=== PATIENT | male | born 1950 | race Caucasian/White ===

== ENCOUNTER → 2021-11-02 | Outpatient (CLI) | payer MEDICARE, OTHER ==
[2021-11-02 12:39] LABS: Appearance,Urine Clear (Clear); Bilirubin,Urine Negative (Negative); Blood,Urine Negative (Negative); Color,Urine Yellow; Glucose,Urine (UA) Negative (Negative); Ketones,Urine Negative (Negative); Leukocyte Esterase,Urine Trace (Negative); Mucus,Urine Few /hpf; Nitrite,Urine Negative (Negative); PH, Urine 5.5 (5.0-8.0); Protein,Urine Trace (Negative); RBC,Urine <1 /hpf (0-5); Specific Gravity,Urine 1.022 (1.001-1.035); Urobilinogen,Urine <2.0 mg/dL (<2.0); WBC,Urine 3 /hpf (0-5)
[2021-11-02 18:14] LABS: African American GFR (CKD) 106.9 (60.0-200.0); Anion Gap 11.6 mmol/L (10.00-18.00); BUN/Creat Ratio 16.49 Ratio (12.00-20.00); Blood Urea Nitrogen 12.6 mg/dL (9.0-27.0); Calcium 9.2 mg/dL (8.7-10.3); Carbon Dioxide 21.6 mmol/L (20.0-27.5); Non-African American GFR(CKD) 92.2 (60.0-200.0); Potassium 4.8 mmol/L (3.5-5.5)
[2021-11-02 18:18] LABS: Basophils # (A) 0.07 X 10*3/uL (0.00-0.10); Basophils % (A) 0.9 %; Eosinophils % (A) 3.6 %; HCT 49.1 % (39.6-50.0); HGB 16.2 g/dL (13.0-17.0); Immature Grans, Automated 0.2 %; Lymphocytes # (A) 2.35 X 10*3/uL (0.90-5.00); Lymphocytes % (A) 28.6 %; MCH 29.2 pg (27.0-32.0); MCV 88.5 fL (80.0-97.0); Mean Platelet Volume 10.1 fL (9.5-12.2); Monocytes # (A) 0.71 X 10*3/uL (0.20-1.00); Monocytes % (A) 8.6 %; NRBC Per 100 WBC 0 /100 WBCS (0.0-0.0); Neutrophils # (A) 4.78 X 10*3/uL (1.80-7.70); Neutrophils % (A) 58.1 %; Platelet Count 273 X 10*3/uL (140-440); RBC 5.55 X 10*6/uL (4.40-5.60); RDW 14.5 % (11.5-14.5); WBC 8.23 X 10*3/uL (4.50-10.00)
== END | disposition home or self-care (01) ==
LOC: LABPAT 11:30
PROVIDERS: ATTEND Urology
DX: Z01.812 Encounter for preprocedural laboratory examination (principal); N40.1 Benign prostatic hyperplasia with lower urinary tract symptoms; N39.0 Urinary tract infection, site not specified; R53.83 Other fatigue
CPT/HCPCS: 36415; 80048; 81001; 85025; 87086; 93005

== ENCOUNTER 2021-11-08 10:03 | Inpatient (IN) | payer MEDICARE, OTHER ==
--- NOTE | 2021-11-05 09:00 | P.HPIHPCON ---
History of Present Illness H&P Date: 11/05/21 This is an 71-year-old male with a history of BPH. He has history of 86 g prostate. Discussed given the size of his prostate the recommended approach is either a HoLEP or Robotic simple prostatecomy. discussed the risk and benefit of each procedure in detail. He agreed to proceed with a robotic simple prostatectomy. Discussed with him the risk of surgery which includes but not limited to bleeding, infection, injury to nearby organs which includes but not limited to bowel, ureter, rectum, or blood vessels.. Discussed also with him risk from anesthesia which includes but not limited to heart attack, stroke, blood clots. Discussed with him also the risk of persistent retention even with simple prostatectomy. Discussed the risk of erectile dysfunction and urinary incontinence. He understood all the risk and agreed to proceed Consent for Procedure: I have explained the operation/procedure to the patient, including the risks, benefits, side effects, alternative therapies (including not receiving the proposed treatment or service), the likelihood of the patient achieving his/her goals, and potential recuperation problems for the procedure/sedation/analgesia, as well as any blood products, if indicated. I also explained to the patient the risks, benefits and side effects of the alternatives, as well as the risks related to not receiving the proposed procedure, care, treatment, or services. Surgical - Exam - General no distress, no pain - Eyes normal ocular movement - ENT normal nares, normal mucosa - Respiratory normal expansion, normal respiratory effort - Abdomen Abdomen: soft, non tender - Psychiatric oriented to time, oriented to person, oriented to place Assessment and Plan Assessment: OR for robotic simple prostatectomy
[2021-11-05 16:09] VITALS: BMI 34.8
[~2021-11-08 10:03] MED LIST: DEXAMETHASONE SOD PHOSPHATE 4 MG/ML 1 ML VIAL IV ONE; HEPARIN SODIUM,PORCINE/PF 5,000 UNIT/0.5 ML SYRINGE SQ PRN; HYDROmorphone 0.5 MG/0.5 ML SYRINGE IVP PRN; MIDAZOLAM 2 MG/2 ML VIAL IV PRN; ONDANSETRON 4 MG/2 ML VIAL IVP ONE
[2021-11-08 10:46] VITALS: TEMP 97.8
[2021-11-08] MEDS: LIDOCAINE 1% (10MG/ML) FOR IV START INTRADERMA PRN ×2 (10:50→11:01)
[2021-11-08] MEDS: LACTATED RINGERS 1,000 ML IV SCH ×3 (10:50→12:12)
[2021-11-08 12:44] VITALS: BP 141/84; PULSE 66; RESP 18
== END 2021-11-08 12:45 | disposition home or self-care (01) | DRG 725 ==
LOC: 2ORMAIN 10:03
PROVIDERS: ADMIT Urology; ATTEND Urology
DX: N40.1 Benign prostatic hyperplasia with lower urinary tract symptoms (principal); U07.1 COVID-19; Z53.8 Procedure and treatment not carried out for other reasons; H40.9 Unspecified glaucoma; Z79.899 Other long term (current) drug therapy; Z91.030 Bee allergy status; Z88.8 Allergy status to other drugs, medicaments and biological substances
CPT/HCPCS: 86850; 86900; 86901; 87635

== ENCOUNTER → 2022-07-02 | Outpatient (CLI) | payer MEDICARE, OTHER ==
[2022-07-03 03:00] LABS: Basophils # (A) 0.07 X 10*3/uL (0.00-0.10); Basophils % (A) 0.8 %; Eosinophils # (A) 0.52 X 10*3/uL (0.04-0.35); Eosinophils % (A) 6.1 %; HCT 49.9 % (39.6-50.0); HGB 16.2 g/dL (13.0-17.0); Immature Grans, Automated 0.2 %; Lymphocytes # (A) 2.67 X 10*3/uL (0.90-5.00); Lymphocytes % (A) 31.1 %; MCH 28.5 pg (27.0-32.0); MCHC 32.5 g/dL (32.0-37.0); MCV 87.9 fL (80.0-97.0); Mean Platelet Volume 10.6 fL (9.5-12.2); Monocytes # (A) 0.81 X 10*3/uL (0.20-1.00); Monocytes % (A) 9.4 %; NRBC Per 100 WBC 0 /100 WBCS (0.0-0.0); Neutrophils % (A) 52.4 %; Platelet Count 279 X 10*3/uL (140-440); RBC 5.68 X 10*6/uL (4.40-5.60); RDW 14.2 % (11.5-14.5); WBC 8.59 X 10*3/uL (4.50-10.00)
[2022-07-03 07:42] LABS: Appearance,Urine Turbid (Clear); Bacteria,Urine None Seen /HPF (None Seen); Bilirubin,Urine Negative (Negative); Blood,Urine Negative (Negative); Calcium Oxalate Crystals,Urine Present /LPF (None Seen); Color,Urine Dark Yellow (Yellow); Ketones,Urine Trace mg/dL (Negative); Nitrite,Urine Negative (Negative); Specific Gravity,Urine 1.025 (1.001-1.030); Urobilinogen,Urine 0.2 (0.2,1.0)
[2022-07-03 08:16] LABS: African American GFR (CKD) 104.2 (60.0-200.0); BUN/Creat Ratio 15.13 Ratio (12.00-20.00); Blood Urea Nitrogen 12.1 mg/dL (9.0-27.0); Non-African American GFR(CKD) 89.9 (60.0-200.0); Potassium 4.2 mmol/L (3.5-5.5)
== END | disposition home or self-care (01) ==
LOC: LABPAT 14:32
PROVIDERS: ATTEND Urology
DX: Z01.812 Encounter for preprocedural laboratory examination (principal); N40.1 Benign prostatic hyperplasia with lower urinary tract symptoms; N39.0 Urinary tract infection, site not specified; R53.83 Other fatigue
CPT/HCPCS: 80048; 81001; 85025; 87086; 93005

== ENCOUNTER 2022-07-11 07:04 | Inpatient (IN) | payer MEDICARE, OTHER ==
[2022-07-09 16:36] VITALS: BMI 36.6
--- NOTE | 2022-07-10 10:20 | P.HPIHPCON ---
History of Present Illness H&P Date: 07/10/22 Chief Complaint: BPH This is a 72-year-old male with history of 84 g prostate, having significant urinary symptoms despite medical therapy. Discussed with him given the size of his prostate the option of a robotic simple prostatectomy versus a HoLEP. Discussed with him the risk and the benefit of each approach. He agreed to proceed with a robotic simple prostatectomy. Discussed the risk which includes but not limited to bleeding, infection, urinary incontinence, urethral strictures, erectile dysfunction, retrograde ejaculation. Discussed also risk from anesthesia. He understood all the risk and agreed to proceed with robotic simple prostatectomy Consent for Procedure: I have explained the operation/procedure to the patient, including the risks, benefits, side effects, alternative therapies (including not receiving the proposed treatment or service), the likelihood of the patient achieving his/her goals, and potential recuperation problems for the procedure/sedation/analgesia, as well as any blood products, if indicated. I also explained to the patient the risks, benefits and side effects of the alternatives, as well as the risks related to not receiving the proposed procedure, care, treatment, or services. Past Medical History Past Medical History: Eye Disorder, GERD/Reflux, Hearing Disorder / Deafness, Prostate Disorder Additional Past Medical History / Comment(s): Glaucoma bilat eyes. Hx nephritis as child. Enlarged prostate., CADDO History of Any Multi-Drug Resistant Organisms: None Reported Past Surgical History: Joint Replacement, Orthopedic Surgery, Tonsillectomy Additional Past Surgical History / Comment(s): Total hips bilat. ORIF Rt ankle. Vasectomy, epididymectomy., COLONOSCOPY, BILAT CATARACTS REMOVED WITH LENS IMPLANTS, RT RETINAL SX, Past Anesthesia/Blood Transfusion Reactions: No Reported Reaction Smoking Status: Former smoker - Past Family History Mother Sister(s) Family Medical History: Cancer Additional Family Medical History / Comment(s): mother - breast cancer; sister - breast cancer Father Family Medical History: Cancer Additional Family Medical History / Comment(s): colon cancer Medications and Allergies Home Medications Medication Instructions Recorded Confirmed Type Multivitamins, Thera [Multivitamin 1 tab PO DAILY 11/05/21 07/09/22 History (formulary)] RX: Dorzolamide-Timol 2.23%/0.68% 1 drop BOTH EYES BID 11/05/21 07/09/22 History [Cosopt] Allergies Allergy/AdvReac Type Severity Reaction Status Date / Time bee venom protein (honey bee) Allergy Swelling Verified 07/09/22 16:27 epoxy resin Allergy Swelling Verified 07/09/22 16:27 Surgical - Exam - General no distress, no pain - Respiratory normal expansion, normal respiratory effort - Abdomen Abdomen: soft, non tender Assessment and Plan Assessment: OR for a robotic simple prostatectomy
[~2022-07-11 07:04] MED LIST changes: -HYDROmorphone 0.5 MG/0.5 ML SYRINGE IVP PRN; +LIDOCAINE 1% (10MG/ML) FOR IV START INTRADERMA PRN; +ceFAZolin 3 GM in SODIUM CHLORIDE 0.9% 100 ML IVPB PRN
[2022-07-11] MEDS: LACTATED RINGERS 1,000 ML IV SCH (08:23)
[2022-07-11] MEDS ORDERED: LACTATED RINGERS 1,000 ML IV ONE (09:00)
[2022-07-11] MEDS ORDERED: fentaNYL (PF) 50 MCG/ML 2 ML AMP IV ONE ×2 (09:09→09:15)
[2022-07-11] MEDS ORDERED: MIDAZOLAM 2 MG/2 ML VIAL IV ONE ×2 (09:09→09:15)
[2022-07-11] MEDS ORDERED: ceFAZolin 1,000 MG VIAL ONE (09:15)
[2022-07-11] MEDS ORDERED: GLYCOPYRROLATE 0.2 MG/ML 2 ML VIAL ONE (09:15)
[2022-07-11] MEDS ORDERED: ROCURONIUM 10 MG/ML (5 ML VIAL) IV ONE (09:15)
[2022-07-11] MEDS ORDERED: NEOSTIGMINE 1 MG/ML 10 ML VIAL ONE (09:15)
[2022-07-11] MEDS ORDERED: LIDOCAINE 2% INJ 20 MG/ML (2 ML VIAL) ONE (09:15)
[2022-07-11] MEDS ORDERED: diphenhydrAMINE 50 MG/ML 1 ML VIAL ONE (09:15)
[2022-07-11] MEDS ORDERED: fentaNYL (PF) 50 MCG/ML 2 ML AMP ONE (09:15)
[2022-07-11] MEDS ORDERED: ONDANSETRON 4 MG/2 ML VIAL ONE (09:15)
[2022-07-11] MEDS ORDERED: SODIUM CHLORIDE 0.9% 100 ML BAG ONE (09:15)
[2022-07-11] MEDS ORDERED: HYDROmorphone (PF) 1 MG/ML ONE (09:15)
[2022-07-11] MEDS ORDERED: SUCCINYLCHOLINE CHLORIDE 200 MG/10 ML VIAL IV ONE (09:15)
[2022-07-11] MEDS ORDERED: SODIUM CHLORIDE 0.9% (PF) 10 ML VIAL ONE (09:15)
[2022-07-11] MEDS ORDERED: PROPOFOL 10 MG/ML 20 ML VIAL IV ONE (09:15)
[2022-07-11] MEDS ORDERED: ROPIVACAINE 5 MG/ML 30 ML VIAL ONE (09:15)
[2022-07-11] MEDS ORDERED: BUPIVACAINE (PF) 0.25% 30 ML VIAL SQ ONE ×2 (09:56)
[2022-07-11] MEDS ORDERED: HYDROcodone/APAP 5-325MG 1 EACH TAB PO PRN (12:54)
--- NOTE | 2022-07-11 12:57 | P.OP ---
Date of Procedure: 07/11/22 Preoperative Diagnosis: BPH Postoperative Diagnosis: same Procedure(s) Performed: robotic simple prostatectomy Implants: none Anesthesia: ISACA Surgeon: Josh Roth Estimated Blood Loss (ml): 200 Pathology: other (prostate adenoma) Condition: stable Disposition: PACU Indications for Procedure: This is a 72-year-old male with history of 84 g prostate, having significant urinary symptoms despite medical therapy. Discussed with him given the size of his prostate the option of a robotic simple prostatectomy versus a HoLEP. Discussed with him the risk and the benefit of each approach. He agreed to proceed with a robotic simple prostatectomy. Discussed the risk which includes but not limited to bleeding, infection, urinary incontinence, urethral strictures, erectile dysfunction, retrograde ejaculation. Discussed also risk from anesthesia. He understood all the risk and agreed to proceed with robotic simple prostatectomy Description of Procedure: After preoperative antibiotics were started, the patient was taken to the operating room. Anesthesia was induced and the patient was placed in a supine position with adequate padding of the pressure points, shoulders, back, legs and arms. He was then prepped and draped in the standard fashion. A critical pause was performed using two patient identifiers. A 16F langley catheter was placed to gravity drainage. A pneumoperitoneum was obtained using a Veress needle, after pneumoperitoneum was obtained a 8 mm camera port was placed. Under direct vision a 8mm robotic ports was placed lateral to each rectus slightly below the camera port. The left iliac fossa 8mm port was placed. The right miner assistant right iliac fossa 12mm port and right paramedian 5mm portwere placed. After the patient was placed in the trendelenberg position, the robot was then docked to the 8mm robotic ports and then each robotic arm and tower was checked in relation to the patient's legs and hands to avoid inadvertent compression. The peritoneal cavity was inspected. Adhesions were taken down along the left lower quadrant An inverted U-shaped incision began laterally to the left medial umbilical ligament and extended high across the midline to the right umbilical ligament. The limbs of the "U" extended to the level of the vasa on both sides. We next developed the preperitoneal space and the space of Retzius. Cautery was used to dissected the bladder away from the prostate, the incision was made in close proximity to the prostate, and incision was extended laterally and at this point the plane between the adenoma and the surgical capsule is identified. Both ureteral orifices were identified and neither was injured during the dissection . The adenoma was dissected off of the capsule by combination of blunt dissection and minimum cautery. dissection was initially started along the anterior surface and posterior surface of adenoma, and this was carried laterally. The dissection was carried to the apex, at this point the urethral-prostatic junction was visualized and the prostate was transected at the junction. Prostate adenoma was placed in an endocatch bag . A 9and 6 inch 3-0 V-Lock suture was used to anastomose the urethra and bladder, starting at the 6:00 posterior position. Mucosa was secured in every stitch, to ensure a mucosa to mucosa anastomosis. The stitch was regularly cinched and the anastomosis tightened. . The 20 Fr Langley catheter was advanced, the bladder filled, and the anastomosis was tested. Anastomsis was watertight at 150 mL. balloon was inflated to 10 mL The robot was undocked. specimen was extracted from the supraumbilical incision. The periumbilical fascia was closed with 1-0-PDS suture in figure of 8 fashion. All ports were closed with a subcuticular 4-0 monocryl and Dermabond. Sponge, instrument, and needle counts were correct at the end of the case x2. The patient tolerated the surgery well and without complication. He awoke without difficulty and was taken to the recovery room in stable condition
[2022-07-11] MEDS: HYDROmorphone 0.5 MG/0.5 ML SYRINGE IVP PRN ×2 (13:19→14:08)
--- NOTE | 2022-07-11 14:19 | P.ANPRN ---
Procedure Note - Anesthesia - Nerve Block Performed Bilateral Erector Spinae Time Out Performed: Yes (:) Date of Procedure: 07/11/22 Procedure Start Time: Procedure Stop Time: Location of Patient: PreOp Indication: Acute Post-Operative Pain, Requested by Surgeon (DR Roth) Sedation Type: Sedate with meaningful contact maintained Preparation: Sterile Prep Position: Prone Catheter: None Needle Types: Pajunk Needle Gauge: 21 Ultrasound used to visualize needle placement: Yes Ultrasound used to observe medication spread: Yes Injectate: 0.5% Ropivacaine (see comment for volume) (15cc +10cc PF Normal saline each side) Blood Aspirated: No Pain Paresthesia on Injection Noted: No Resistance on Injection: Normal Image Stored and Saved: Yes Events: Uneventful and Well Tolerated
[2022-07-11] MEDS: D5-0.45% NACL WITH KCL 20MEQ/L 1,000 ML IV SCH ×2 (16:16→21:37)
[2022-07-11] MEDS: KETOROLAC 15 MG/ML 1 ML VIAL IVP SCH ×2 (17:01→23:55)
[2022-07-11] MEDS: HEPARIN SODIUM,PORCINE/PF 5,000 UNIT/0.5 ML SYRINGE SQ SCH ×2 (17:02→23:55)
[2022-07-11 20:25] VITALS: RESP 16
[2022-07-11] MEDS: DORZOLAMIDE-TIMOLOL 2.23%/0.68 10ML BTL BOTH EYES SCH (21:36)
[2022-07-12] MEDS: LACTATED RINGERS 1,000 ML IV SCH (03:49)
[2022-07-12] MEDS: KETOROLAC 15 MG/ML 1 ML VIAL IVP SCH (06:04)
[2022-07-12 07:47] VITALS: BP 126/80; PULSE 67; TEMP 96.8
[2022-07-12] MEDS: HEPARIN SODIUM,PORCINE/PF 5,000 UNIT/0.5 ML SYRINGE SQ SCH (08:24)
[2022-07-12] MEDS: DORZOLAMIDE-TIMOLOL 2.23%/0.68 10ML BTL BOTH EYES SCH (08:24)
[2022-07-12] MEDS: D5-0.45% NACL WITH KCL 20MEQ/L 1,000 ML IV SCH (08:24)
--- NOTE | 2022-07-12 12:50 | P.DS ---
Providers Date of admission: 07/11/22 07:04 Expected date of discharge: 07/12/22 Attending physician: Josh Roth MD Primary care physician: Gabbi Morejon - Discharge Diagnosis(es) (1) BPH with urinary obstruction Status: Acute Hospital Course: The patient is a 72-year-old male with a pmh significant for BPH. He had significant urinary symptoms despite medical therapy. On 07/11/22 he was taken to the OR and had a robotic simple prostatectomy with Dr. Roth. No acute events over night. He reports that his pain is well controlled. Abdominal laparoscopic sites CDI. Vitals stable and he is afebrile. Hcerry catheter draining clear yellow urine. He ate breakfast and denies any nausea or vomiting. He has been out of bed and ambulating in his room and denies any shortness of breath. The patient will be discharged with a Cherry catheter in place. Requested that the RN change his drainage bag to a leg bag before discharge. He was instructed to start taking his Cipro 3 days prior to his follow up appointment in one week. His catheter will be removed in the office at that time. His was present at the bedside for all instructions. Prescriptions for Cipro, Nocro, and Toradol sent to pharmacy. Impression and plan of care have been directed as dictated by the signing physician. Chelsi Hamlin nurse practitioner acting as scribe for signing physician. Chelsi Hamlin 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 Patient Condition at Discharge: Good Plan - Discharge Summary Discharge Rx Participant: Yes New Discharge Prescriptions: New Sennosides-Docusate Sodium [Senokot-S] 1 tab PO DAILY #7 tablet Ciprofloxacin HCl [Cipro] 500 mg PO BID 1 Days #6 tab HYDROcodone/APAP 5-325MG [[place] 5-325] 1 tab PO Q6HR PRN #6 tab PRN Reason: Pain Ketorolac [Toradol] 10 mg PO Q6HR PRN #15 tab PRN Reason: Pain No Action Multivitamins, Thera [Multivitamin (formulary)] 1 tab PO DAILY Dorzolamide-Timol 2.23%/0.68% [Cosopt] 1 drop BOTH EYES BID Discharge Medication List Dorzolamide-Timol 2.23%/0.68% [Cosopt] 1 drop BOTH EYES BID 11/05/21 [History] Multivitamins, Thera [Multivitamin (formulary)] 1 tab PO DAILY 11/05/21 [History] Ciprofloxacin HCl [Cipro] 500 mg PO BID 1 Days #6 tab 07/12/22 [Rx] HYDROcodone/APAP 5-325MG [[place] 5-325] 1 tab PO Q6HR PRN #6 tab 07/12/22 [Rx] Ketorolac [Toradol] 10 mg PO Q6HR PRN #15 tab 07/12/22 [Rx] Sennosides-Docusate Sodium [Senokot-S] 1 tab PO DAILY #7 tablet 07/12/22 [Rx] Follow up Appointment(s)/Referral(s): Josh Roth MD [STAFF PHYSICIAN] - 07/22/22 9:40 am [facility], [NON-STAFF] - As Needed Activity/Diet/Wound Care/Special Instructions: Cherry catheter will be taken out in follow up appointment Please start antibiotic - Cipro 3 days before follow up appointment No heavy lifting, straining, or strenuous activity for 4 weeks Discharge Disposition: HOME SELF-CARE
== END 2022-07-12 12:05 | disposition home health service (06) | DRG 717 ==
LOC: 2ORMAIN 07:04 → 4SSUR 14:38
PROVIDERS: ADMIT Urology; ATTEND Urology
PROC: 8E0W4CZ Robotic Assisted Procedure of Trunk Region, Percutaneous Endoscopic Approach (ICD-10-PCS; principal; 2022-07-11 09:00)
PROC: 0VB04ZZ Excision of Prostate, Percutaneous Endoscopic Approach (ICD-10-PCS; principal; 2022-07-11 09:00)
DX: N40.1 Benign prostatic hyperplasia with lower urinary tract symptoms (principal); N13.8 Other obstructive and reflux uropathy; K21.9 Gastro-esophageal reflux disease without esophagitis; H91.90 Unspecified hearing loss, unspecified ear; H40.9 Unspecified glaucoma; Z79.899 Other long term (current) drug therapy; Z87.891 Personal history of nicotine dependence; Z96.643 Presence of artificial hip joint, bilateral; Z91.030 Bee allergy status; Z91.048 Other nonmedicinal substance allergy status
CPT/HCPCS: 64999; 86850; 86900; 86901; 88307

== ENCOUNTER 2022-07-13 15:12 | Inpatient (IN) | payer MEDICARE, OTHER ==
[2022-07-13] MEDS ORDERED: SODIUM CHLORIDE 0.9% 500 ML 500 ML IV STA (15:39)
--- NOTE | 2022-07-13 15:42 | ED ---
General Adult HPI - General Chief complaint: Recheck/Abnormal Lab/Rx Stated complaint: post op complication Time Seen by Provider: 07/13/22 15:18 Source: patient Mode of arrival: EMS Limitations: no limitations - History of Present Illness Initial comments: Dictation was produced using [employer] dictation software. please excuse any grammatical, word or spelling errors. Chief Complaint: 72-year-old male presents to the emergency department for abdominal pain, nausea vomiting and constipation History of Present Illness: 72-year-old male on he had laparoscopic prostate surgery. Patient states since then he has not had a bowel movement. Since late yesterday been having nausea vomiting and abdominal pain. He has not tried to take any medications improve her symptoms radiate is brought in by EMS. Patient has any fever. States that his appetite is poor. States that his emesis is nonbloody. The ROS documented in this emergency department record has been reviewed and confirmed by me. Those systems with pertinent positive or negative responses have been documented in the HPI. All other systems are other negative and/or noncontributory. PHYSICAL EXAM: General Impression: Alert and oriented x3, not in acute distress HEENT: Normocephalic atraumatic, extra-ocular movements intact, pupils equal and reactive to light bilaterally, mucous membranes moist. Cardiovascular: Heart regular rate and rhythm Chest: Able to complete full sentences, no retractions, no tachypnea Abdomen: Mildly distended, mildly tympanitic Musculoskeletal: Pulses present and equal in all extremities, no peripheral edema Motor: no focal deficits noted Neurological: CN II-XII grossly intact, no focal motor or sensory deficits noted Skin: Intact with no visualized rashes Psych: Normal affect and mood ED course: 72-year-old male presents emergency department for abdominal pain, nausea vomiting since surgery. Vital signs upon arrival are within acceptable limits. Evaluation obtained leukocytosis 16.6. Metabolic panel is unremarkable. Abdominal labs negative. Initial abdominal x-rays unremarkable. Concerning patient has abdominal pain leukocytosis and significant GI symptoms computed tomography scan was ordered showing high-grade mechanical bowel obstruction secondary to incarcerated umbilical hernia. Case is discussed with Dr. Brasher who was playing on taking patient to the operating room urgently. - Related Data Home Medications Medication Instructions Recorded Confirmed Dorzolamide-Timol 2.23%/0.68% 1 drop BOTH EYES BID 11/05/21 07/13/22 [Cosopt] Multivitamins, Thera [Multivitamin 1 tab PO DAILY 11/05/21 07/13/22 (formulary)] Ciprofloxacin HCl [Cipro] 500 mg PO DIRECTED 07/13/22 07/13/22 Previous Rx's Medication Instructions Recorded HYDROcodone/APAP 5-325MG [[place] 1 tab PO Q6HR PRN #6 tab 07/12/22 5-325] Ketorolac [Toradol] 10 mg PO Q6HR PRN #15 tab 07/12/22 Sennosides-Docusate Sodium 1 tab PO DAILY #7 tablet 07/12/22 [Senokot-S] Allergies Allergy/AdvReac Type Severity Reaction Status Date / Time bee venom protein (honey bee) Allergy Swelling Verified 07/09/22 16:27 epoxy resin Allergy Swelling Verified 07/09/22 16:27 Review of Systems ROS Statement: Those systems with pertinent positive or pertinent negative responses have been documented in the HPI. ROS Other: All systems not noted in ROS Statement are negative. Past Medical History Past Medical History: Eye Disorder, GERD/Reflux, Hearing Disorder / Deafness, Prostate Disorder Additional Past Medical History / Comment(s): Glaucoma bilat eyes. Hx nephritis as child. Enlarged prostate. History of Any Multi-Drug Resistant Organisms: None Reported Past Surgical History: Joint Replacement, Orthopedic Surgery, Tonsillectomy Additional Past Surgical History / Comment(s): Total hips bilat. ORIF Rt ankle. Vasectomy, epididymectomy. prostate surgery Past Anesthesia/Blood Transfusion Reactions: No Reported Reaction Past Psychological History: No Psychological Hx Reported Smoking Status: Former smoker Past Alcohol Use History: None Reported Past Drug Use History: None Reported - Past Family History Mother Sister(s) Family Medical History: Cancer Additional Family Medical History / Comment(s): mother - breast cancer; sister - breast cancer Father Family Medical History: Cancer Additional Family Medical History / Comment(s): colon cancer General Exam Limitations: no limitations Course Vital Signs 07/13/22 15:15 Temperature 98.9 F Pulse Rate 94 Respiratory 18 Rate Blood Pressure 119/97 O2 Sat by Pulse 95 Oximetry Medical Decision Making - Lab Data Result diagrams: 07/13/22 15:58 07/13/22 15:58 Lab Results 07/13/22 07/13/22 07/13/22 Range/Units 15:58 15:58 15:58 WBC 16.6 H (3.8-10.6) k/uL RBC 5.76 (4.30-5.90) m/uL Hgb 16.6 (13.0-17.5) gm/dL Hct 50.1 (39.0-53.0) % MCV 87.0 (80.0-100.0) fL MCH 28.9 (25.0-35.0) pg MCHC 33.2 (31.0-37.0) g/dL RDW 13.9 (11.5-15.5) % Plt Count 281 (150-450) k/uL MPV 8.7 Neutrophils % (Manual) 75 % Band Neuts % (Manual) 8 % Lymphocytes % (Manual) 7 % Monocytes % (Manual) 8 % Eosinophils % (Manual) 2 % Neutrophils # (Manual) 13.70 H (1.3-7.7) k/uL Lymphocytes # (Manual) 1.16 (1.0-4.8) k/uL Monocytes # (Manual) 1.33 H (0-1.0) k/uL Eosinophils # (Manual) 0.33 (0-0.7) k/uL Nucleated RBCs 0 (0-0) /100 WBC Manual Slide Review Performed Sodium 138 (137-145) mmol/L Potassium 4.9 (3.5-5.1) mmol/L Chloride 101 (98-107) mmol/L Carbon Dioxide 23 (22-30) mmol/L Anion Gap 14 mmol/L BUN 20 (9-20) mg/dL Creatinine 0.71 (0.66-1.25) mg/dL Est GFR (CKD-EPI)AfAm >90 (>60 ml/min/1.73 sqM) Est GFR (CKD-EPI)NonAf >90 (>60 ml/min/1.73 sqM) Glucose 137 H (74-99) mg/dL Plasma Lactic Acid Hrerera 1.6 (0.7-2.0) mmol/L Calcium 8.5 (8.4-10.2) mg/dL Total Bilirubin 1.1 (0.2-1.3) mg/dL AST 25 (17-59) U/L ALT 22 (4-49) U/L Alkaline Phosphatase 101 (38-126) U/L Total Protein 7.4 (6.3-8.2) g/dL Albumin 4.3 (3.5-5.0) g/dL Disposition Clinical Impression: SBO (small bowel obstruction) Disposition: ADMITTED IP TO THIS [facility] Condition: Serious Decision Time: 18:27
--- NOTE | 2022-07-13 16:19 | XR ---
EXAMINATION TYPE: XR abdomen 1V DATE OF EXAM: 07/13/2022 COMPARISON: NONE HISTORY: Abdominal pain TECHNIQUE: 2 views FINDINGS: 2 views upright were obtained and show no sign of intestinal obstruction or pneumoperitoneu m. Fecal pattern is normal. There is mild lumbar levoscoliosis. There is bilateral hip prosthesis. Sa croiliac joints are intact. IMPRESSION: Nonacute abdomen.
[2022-07-13 16:27] LABS: ALT 22 U/L (4-49); AST 25 U/L (17-59); African American GFR (CKD) >90 (>60 ml/min/1.73 sqM); Albumin 4.3 g/dL (3.5-5.0); Alkaline Phosphatase 101 U/L (38-126); Anion Gap 14 mmol/L; Blood Urea Nitrogen 20 mg/dL (9-20); Calcium 8.5 mg/dL (8.4-10.2); Carbon Dioxide 23 mmol/L (22-30); Chloride 101 mmol/L (98-107); Glucose 137 mg/dL (74-99); Non-African American GFR(CKD) >90 (>60 ml/min/1.73 sqM); Potassium 4.9 mmol/L (3.5-5.1); Sodium 138 mmol/L (137-145); Total Bilirubin 1.1 mg/dL (0.2-1.3); Total Protein 7.4 g/dL (6.3-8.2)
[2022-07-13 16:29] LABS: HCT 50.1 % (39.0-53.0); HGB 16.6 gm/dL (13.0-17.5); MCH 28.9 pg (25.0-35.0); MCHC 33.2 g/dL (31.0-37.0); Mean Platelet Volume 8.7; Platelet Count 281 k/uL (150-450); RBC 5.76 m/uL (4.30-5.90); RDW 13.9 % (11.5-15.5); WBC 16.6 k/uL (3.8-10.6)
[2022-07-13 16:49] LABS: Band Neutrophils % 8 %; Eosinophils # (M) 0.33 k/uL (0-0.7); Lymphocytes # (M) 1.16 k/uL (1.0-4.8); Monocytes # (M) 1.33 k/uL (0-1.0); Neutrophils % (M) 75 %; Nucleated Red Blood Cells 0 /100 WBC (0-0); Total Cells Counted 100
--- NOTE | 2022-07-13 17:11 | CT ---
EXAMINATION TYPE: CT abdomen pelvis w con DATE OF EXAM: 07/13/2022 COMPARISON: HISTORY: Pt had sx on for enlarged prostate. Now pt C/O costipation and has blood in his cat heter bag. [place] and vomiting CT DLP: 2555.2 mGycm Automated exposure control for dose reduction was used. CONTRAST: Performed with IV Contrast, patient injected with 100cc mL of Isovue 300. Images obtained from the diaphragm to the floor the pelvis with the IV contrast. There is some mild atelectasis at the lung bases. Heart size is normal. No pericardial effusion. Ther e is small hiatal hernia. Liver spleen stomach appear intact. No pancreatic mass. The bile ducts are not dilated. There is no adrenal mass. Kidneys show satisfactory contrast opacification. No hydronephrosis. Ureter s are not dilated. There is Cherry catheter in the urinary bladder. There is metal artifact from bilat eral hip prosthesis. No evidence of a pelvic mass. There are multiple sigmoid diverticula. No diverti culitis. There are numerous fluid-filled distended small bowel loops in the mid abdomen. Terminal ile um is not dilated. There is a jose miguel-umbilical hernia with incarcerated loop of small bowel which is a transition point. There is some minimal fat stranding at the subcutaneous tissues around the umbilicu s. Small bowel is dilated up to 4.9 cm. The lumbar vertebra appear intact. No compression fracture. There is vacuum disc at L4-5. There is sp urring of the endplates. IMPRESSION: Incarcerated periumbilical hernia containing small bowel with the high-grade mechanical small bowel o bstruction. Colonic diverticulosis without diverticulitis.
[2022-07-13] MEDS ORDERED: SODIUM CHLORIDE 0.9% 1,000 ML IV STA (17:38)
[2022-07-13] MEDS ORDERED: NALOXONE 0.4 MG/ML 1 ML VIAL IV PRN (17:44)
[2022-07-13] MEDS: PIPERACILLIN-TAZOBACTAM 3.375 GM in SODIUM CHLORIDE 0.9% 100 ML IVPB SCH (18:17)
--- NOTE | 2022-07-13 18:22 | P.GSHP ---
History of Present Illness H&P Date: 07/13/22 Chief Complaint: Small bowel obstruction Patient is a 72-year-old man who underwent robotic hysterectomy earlier in the week. He was doing well yesterday. This morning when he woke up he was developing nausea and progressive abdominal pain. He came into the ER and was worked up and found to have a incarcerated hernia. He's never had a known hernia in the past. He has a lot of heartburn and nausea but has not vomited. - Review of Systems All systems: negative Past Medical History Past Medical History: Eye Disorder, GERD/Reflux, Hearing Disorder / Deafness, Prostate Disorder Additional Past Medical History / Comment(s): Glaucoma bilat eyes. Hx nephritis as child. Enlarged prostate. History of Any Multi-Drug Resistant Organisms: None Reported Past Surgical History: Joint Replacement, Orthopedic Surgery, Tonsillectomy Additional Past Surgical History / Comment(s): Total hips bilat. ORIF Rt ankle. Vasectomy, epididymectomy. prostate surgery Past Anesthesia/Blood Transfusion Reactions: No Reported Reaction Past Psychological History: No Psychological Hx Reported Smoking Status: Former smoker Past Alcohol Use History: None Reported Past Drug Use History: None Reported - Past Family History Mother Sister(s) Family Medical History: Cancer Additional Family Medical History / Comment(s): mother - breast cancer; sister - breast cancer Father Family Medical History: Cancer Additional Family Medical History / Comment(s): colon cancer Medications and Allergies Home Medications Medication Instructions Recorded Confirmed Type Dorzolamide-Timol 2.23%/0.68% 1 drop BOTH EYES BID 11/05/21 07/13/22 History [Cosopt] Multivitamins, Thera [Multivitamin 1 tab PO DAILY 11/05/21 07/13/22 History (formulary)] HYDROcodone/APAP 5-325MG [[place] 1 tab PO Q6HR PRN #6 tab 07/12/22 07/13/22 Rx 5-325] Ketorolac [Toradol] 10 mg PO Q6HR PRN #15 tab 07/12/22 07/13/22 Rx Sennosides-Docusate Sodium 1 tab PO DAILY #7 tablet 07/12/22 07/13/22 Rx [Senokot-S] Ciprofloxacin HCl [Cipro] 500 mg PO DIRECTED 07/13/22 07/13/22 History Allergies Allergy/AdvReac Type Severity Reaction Status Date / Time bee venom protein (honey bee) Allergy Swelling Verified 07/09/22 16:27 epoxy resin Allergy Swelling Verified 07/09/22 16:27 Surgical - Exam Osteopathic Statement: *. No significant issues noted on an osteopathic structural exam other than those noted in the History and Physical/Consult. Vital Signs Temp Pulse Resp BP Pulse Ox 98.9 F 94 18 119/97 95 07/13/22 15:15 07/13/22 15:15 07/13/22 15:15 07/13/22 15:15 07/13/22 15:15 - General Appears uncomfortable well developed, well nourished - Neck trachea midline - Respiratory normal respiratory effort, clear to auscultation - Cardiovascular Rhythm: regular - Abdomen He has well-healing incisional scars. There is some swelling at the incision above the umbilicus. This correlates to CT finding of incarcerated small bowel Abdomen: bowel sounds (Hypoactive), distended Results - Labs 07/13/22 15:58 07/13/22 15:58 Abnormal Lab Results - Last 24 Hours (Table) 07/13/22 07/13/22 Range/Units 15:58 15:58 WBC 16.6 H (3.8-10.6) k/uL Neutrophils # (Manual) 13.70 H (1.3-7.7) k/uL Monocytes # (Manual) 1.33 H (0-1.0) k/uL Glucose 137 H (74-99) mg/dL Diabetes panel 07/13/22 Range/Units 15:58 Sodium 138 (137-145) mmol/L Potassium 4.9 (3.5-5.1) mmol/L Chloride 101 (98-107) mmol/L Carbon Dioxide 23 (22-30) mmol/L BUN 20 (9-20) mg/dL Creatinine 0.71 (0.66-1.25) mg/dL Glucose 137 H (74-99) mg/dL Calcium 8.5 (8.4-10.2) mg/dL AST 25 (17-59) U/L ALT 22 (4-49) U/L Alkaline Phosphatase 101 (38-126) U/L Total Protein 7.4 (6.3-8.2) g/dL Albumin 4.3 (3.5-5.0) g/dL Calcium panel 07/13/22 Range/Units 15:58 Calcium 8.5 (8.4-10.2) mg/dL Albumin 4.3 (3.5-5.0) g/dL Pituitary panel 07/13/22 Range/Units 15:58 Sodium 138 (137-145) mmol/L Potassium 4.9 (3.5-5.1) mmol/L Chloride 101 (98-107) mmol/L Carbon Dioxide 23 (22-30) mmol/L BUN 20 (9-20) mg/dL Creatinine 0.71 (0.66-1.25) mg/dL Glucose 137 H (74-99) mg/dL Calcium 8.5 (8.4-10.2) mg/dL Adrenal panel 07/13/22 Range/Units 15:58 Sodium 138 (137-145) mmol/L Potassium 4.9 (3.5-5.1) mmol/L Chloride 101 (98-107) mmol/L Carbon Dioxide 23 (22-30) mmol/L BUN 20 (9-20) mg/dL Creatinine 0.71 (0.66-1.25) mg/dL Glucose 137 H (74-99) mg/dL Calcium 8.5 (8.4-10.2) mg/dL Total Bilirubin 1.1 (0.2-1.3) mg/dL AST 25 (17-59) U/L ALT 22 (4-49) U/L Alkaline Phosphatase 101 (38-126) U/L Total Protein 7.4 (6.3-8.2) g/dL Albumin 4.3 (3.5-5.0) g/dL - Imaging CT scan - abdomen: report reviewed, image reviewed Assessment and Plan (1) Incarcerated ventral hernia Current Visit: Yes Status: Acute Code(s): K43.6 - OTHER AND UNSP VENTRAL HERNIA WITH OBSTRUCTION, W/O GANGRENE SNOMED Code(s): 937299487 (2) Small bowel obstruction Current Visit: Yes Status: Acute Code(s): K56.609 - UNSP INTESTNL OBST, UNSP TO PARTIAL VERSUS COMPLETE OBST SNOMED Code(s): 311860757 Plan: This appears to be area of herniated small bowel at a trocar site. I recommended we do a local exploration and reduced the hernia. Did explain there is a slight chance of requiring a laparotomy with bowel resection if there is any evidence of strangulated bowel. The procedure, risk and complications were discussed. Questions were encouraged and answered. I'll have an NG tube placed to the heartburn and obstruction. He will receive prophylactic antibiotics along with DVT and ulcer prophylaxis.
[2022-07-13] MEDS ORDERED: ONDANSETRON 4 MG/2 ML VIAL IVP STA (18:30)
--- NOTE | 2022-07-13 18:45 | XR ---
EXAMINATION TYPE: XR chest 1V confirm line [facility] DATE OF EXAM: 07/13/2022 COMPARISON: NONE HISTORY: TECHNIQUE: 2 views FINDINGS: There is no heart failure nor confluent pneumonic infiltrate. There is poor inspiration. Th ere is slight coarsening of lung markings. Heart size is normal. There is nasogastric tube looped on itself in the cervical esophagus. IMPRESSION: Mild pulmonary fibrosis. 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
--- NOTE | 2022-07-13 19:03 | XR ---
EXAMINATION TYPE: XR chest 1V confirm line [facility] DATE OF EXAM: 07/13/2022 COMPARISON: NONE HISTORY: Check tube placement TECHNIQUE: 2 views FINDINGS: The heart and mediastinum are normal. Lungs are clear. Diaphragm is normal. The nasogastric tube is looped in the cervical esophagus. IMPRESSION: There is malposition of the nasogastric tube in the cervical esophagus. No change. No acu te cardiopulmonary disease.
[2022-07-13] MEDS ORDERED: IV FLUID CONTINUATION 1,000 ML IV ONE (19:15)
[2022-07-13] MEDS ORDERED: DEXAMETHASONE SOD PHOSPHATE 4 MG/ML 1 ML VIAL IV ONE (19:20)
[2022-07-13] MEDS ORDERED: NEOSTIGMINE 1 MG/ML 10 ML VIAL ONE (19:23)
[2022-07-13] MEDS ORDERED: GLYCOPYRROLATE 0.2 MG/ML 2 ML VIAL ONE (19:23)
[2022-07-13] MEDS ORDERED: LIDOCAINE 2% INJ 20 MG/ML (2 ML VIAL) ONE (19:23)
[2022-07-13] MEDS ORDERED: PROPOFOL 10 MG/ML 20 ML VIAL IV ONE (19:23)
[2022-07-13] MEDS ORDERED: fentaNYL (PF) 50 MCG/ML 2 ML AMP ONE (19:23)
[2022-07-13] MEDS ORDERED: SUCCINYLCHOLINE CHLORIDE 200 MG/10 ML VIAL IV ONE (19:23)
[2022-07-13] MEDS ORDERED: ROCURONIUM 10 MG/ML (5 ML VIAL) IV ONE (19:23)
[2022-07-13] MEDS ORDERED: BUPIVACAINE (PF) 0.25% 30 ML VIAL SQ ONE (19:48)
[2022-07-13] MEDS ORDERED: LIDOCAINE 1%-EPI 1:100,000 20 ML VIAL SQ ONE (19:48)
--- NOTE | 2022-07-13 20:10 | P.OP ---
Date of Procedure: 07/13/22 Preoperative Diagnosis: Small bowel obstruction due to incarcerated ventral incisional hernia Postoperative Diagnosis: Small bowel obstruction due to incarcerated ventral incisional hernia Procedure(s) Performed: Release of small bowel obstruction with repair of ventral incisional hernia Anesthesia: SHANKAR Surgeon: Gabbi Wilkes Estimated Blood Loss (ml): 10 Pathology: none sent Condition: stable Disposition: PACU Indications for Procedure: Patient presented with nausea and vomiting today. CT showed an incarcerated ventral hernia at a trocar site with small bowel obstruction Description of Procedure: Patient's taken the OR where he is prepped and draped in the usual sterile manner under general endotracheal anesthetic. An elliptical incision was made in the old scar was excised. Subcutaneous tissues were divided with cautery. The loop of incarcerated small bowel was identified. Some existing sutures of PDS were removed. It appeared that the more inferior suture of PDS had pulled through the fascia allowing the small bowel to become incarcerated. The fascia was extended slightly and the small bowel was brought up through the incision. It was little joan red but viable. Showed good peristalsis. It was returned back into the abdominal cavity. The fascia was then closed using interrupted #1 Vicryls. Subcutaneous tissues were approximated with 3-0 Vicryl in a subcuticular manner. The skin was closed with nathan. He tolerated the procedure without difficulty and was taken recovery room in satisfactory condition. According to or personnel, WERE correct.
[2022-07-13] MEDS ORDERED: METOCLOPRAMIDE 5 MG/ML 2 ML VIAL IVP PRN (20:11)
[2022-07-13] MEDS ORDERED: HYDROmorphone 0.5 MG/0.5 ML SYRINGE IVP PRN (20:11)
[2022-07-13] MEDS ORDERED: HYDROmorphone 1 MG/ML 1 ML SYRINGE IVP PRN (20:11)
[2022-07-13] MEDS ORDERED: LACTATED RINGERS 1,000 ML IV ONE (20:18)
[2022-07-13] MEDS: KETOROLAC 15 MG/ML 1 ML VIAL IVP SCH (20:47)
[2022-07-13] MEDS: 0.9% NACL WITH KCL 20 MEQ/L 1,000 ML IV SCH (22:40)
[2022-07-14] MEDS: PIPERACILLIN-TAZOBACTAM 3.375 GM in SODIUM CHLORIDE 0.9% 100 ML IVPB SCH ×4 (00:10→23:36)
[2022-07-14] MEDS: HEPARIN SODIUM,PORCINE/PF 5,000 UNIT/0.5 ML SYRINGE SQ SCH ×4 (00:10→23:36)
[2022-07-14] MEDS: KETOROLAC 15 MG/ML 1 ML VIAL IVP SCH ×4 (06:11→23:36)
[2022-07-14] MEDS: 0.9% NACL WITH KCL 20 MEQ/L 1,000 ML IV SCH ×2 (06:13→16:11)
[2022-07-14] MEDS: PANTOPRAZOLE 40 MG/10 ML VIAL IV SCH (06:19)
--- NOTE | 2022-07-14 10:48 | P.CONS ---
History of Present Illness - History of Present Illness This is a pleasant 72 years old male with multiple medical problems presents with nausea vomiting recurrent with constipation for the last 3 days Patient status post robotic prostatectomy for his BPH. Patient is postop day #2 Patient's presents with signs symptoms of small bowel obstruction secondary to incarcerated umbilical or ventral hernia. Patient evaluated by surgery team and was taken to operation room. Today postop day #1. Patient doing well, he is fully awake and oriented, no chest pain or dyspnea, abdomen soft, no significant tenderness. Some tenderness expected. Vitas looks stable, patient is afebrile. Patient has leukocytosis with 16.[address] of the abdomen and pelvis: Incarcerated periumbilical hernia containing small bowel with high-grade mechanical small bowel obstruction. He is status post release of bowel loops and repair of the incisional ventral hernia. Today is postoperative day #1. Review of Systems Review of systems CONSTITUTIONAL: No fever, no malaise, no fatigue. HEENT: No recent visual problems or hearing problems. Denied any sore throat. CARDIOVASCULAR: No orthopnea, PND, no palpitations, no syncope. PULMONARY: No shortness of breath, no cough, no hemoptysis. GASTROINTESTINAL: No diarrhea, no nausea, no vomiting, . Normoactive bowel sounds. NEUROLOGICAL: No headaches, no weakness, no numbness. HEMATOLOGICAL: Denies any bleeding or petechiae. GENITOURINARY: Denies any burning micturition, frequency, or urgency. MUSCULOSKELETAL/RHEUMATOLOGICAL: Denies any joint pain, swelling, or any muscle pain. ENDOCRINE: Denies any polyuria or polydipsia. Past Medical History Past Medical History: Eye Disorder, GERD/Reflux, Hearing Disorder / Deafness, Prostate Disorder Additional Past Medical History / Comment(s): Glaucoma bilat eyes. Hx nephritis as child. Enlarged prostate. History of Any Multi-Drug Resistant Organisms: None Reported Past Surgical History: Joint Replacement, Orthopedic Surgery, Tonsillectomy Additional Past Surgical History / Comment(s): Total hips bilat. ORIF Rt ankle. Vasectomy, epididymectomy. prostate surgery, eye surgery Past Anesthesia/Blood Transfusion Reactions: No Reported Reaction Past Psychological History: No Psychological Hx Reported Smoking Status: Former smoker Past Alcohol Use History: None Reported Additional Past Alcohol Use History / Comment(s): . Past Drug Use History: None Reported - Past Family History Mother Sister(s) Family Medical History: Cancer Additional Family Medical History / Comment(s): mother - breast cancer; sister - breast cancer Father Family Medical History: Cancer Additional Family Medical History / Comment(s): colon cancer Medications and Allergies Home Medications Medication Instructions Recorded Confirmed Type Dorzolamide-Timol 2.23%/0.68% 1 drop BOTH EYES BID 11/05/21 07/13/22 History [Cosopt] Multivitamins, Thera [Multivitamin 1 tab PO DAILY 11/05/21 07/13/22 History (formulary)] HYDROcodone/APAP 5-325MG [[place] 1 tab PO Q6HR PRN #6 tab 07/12/22 07/13/22 Rx 5-325] Ketorolac [Toradol] 10 mg PO Q6HR PRN #15 tab 07/12/22 07/13/22 Rx Sennosides-Docusate Sodium 1 tab PO DAILY #7 tablet 07/12/22 07/13/22 Rx [Senokot-S] Ciprofloxacin HCl [Cipro] 500 mg PO DIRECTED 07/13/22 07/13/22 History Allergies Allergy/AdvReac Type Severity Reaction Status Date / Time bee venom protein (honey bee) Allergy Swelling Verified 07/09/22 16:27 epoxy resin Allergy Swelling Verified 07/09/22 16:27 Physical Exam Vitals: Vital Signs Temp Pulse Pulse Resp BP BP Pulse Ox 07/14/22 04:30 97.9 F 86 18 134/92 93 L 07/14/22 02:04 98.4 F 81 18 120/80 93 L 07/14/22 00:10 71 18 118/63 94 L 07/13/22 22:29 88 16 128/83 93 L 07/13/22 21:17 128/78 07/13/22 21:13 98.3 F 88 18 95 07/13/22 21:00 77 18 138/61 93 L 07/13/22 20:45 75 18 138/60 93 L 07/13/22 20:30 84 18 133/58 97 07/13/22 20:25 98.2 F 102 H 18 160/79 97 07/13/22 19:21 92 18 129/98 96 07/13/22 15:15 98.9 F 94 18 119/97 95 Intake and Output 1007/13/22 07/14/22 14:59 22:59 06:59 Intake Total 1000 Output Total 620 240 Balance 380 -240 Intake: IV 1000 Output: Urine 600 240 Uretheral (Cherry) 240 Estimated Blood Loss 20 Other: Voiding Method Indwelling Catheter Indwelling Catheter Weight 120.202 kg GENERAL: The patient is alert and oriented x3, not in any acute distress. Well developed, well nourished. HEENT: Pupils are round and equally reacting to light. EOMI. No scleral icterus. No conjunctival pallor. Normocephalic, atraumatic. No pharyngeal erythema. No thyromegaly. CARDIOVASCULAR: S1 and S2 present. No murmurs, rubs, or gallops. PULMONARY: Chest is clear to auscultation, no wheezing or crackles. -ABDOMEN: Soft, nontender, nondistended, normoactive bowel sounds. No palpable o rganomegaly. Surgical wound with dressing in place, rest of exam is deferred to surgery team- MUSCULOSKELETAL: No joint swelling or deformity. EXTREMITIES: No cyanosis, clubbing, or pedal edema. NEUROLOGICAL: Gross neurological examination did not reveal any focal deficits. SKIN: No rashes. no petechiae. Results CBC & Chem 7: 07/13/22 15:58 07/13/22 15:58 Labs: Abnormal Lab Results - Last 24 Hours (Table) 07/13/22 07/13/22 Range/Units 15:58 15:58 WBC 16.6 H (3.8-10.6) k/uL Neutrophils # (Manual) 13.70 H (1.3-7.7) k/uL Monocytes # (Manual) 1.33 H (0-1.0) k/uL Glucose 137 H (74-99) mg/dL Assessment and Plan Assessment: Small bowel obstruction secondary to incarcerated hernia , status post release of small bowel obstruction with repair of ventral incisional hernia recent history of robotic prostatectomy for BPH. Today postop day #3 History of GERD Hearing difficulty Plan: This is a pleasant 72 years old male with incarcerated bowel hernia status post expiratory laparotomy Continue with IV fluid Continue with pain medication Continue with antibiotic Surgery primary team on the case Continue with Zosyn Labs and medication were reviewed.. Continue same treatment. Continue with symptomatic treatment. Resume home medication. Monitor lytes and vitals. DVT and GI prophylaxis. Further recommendations as per clinical course of the patient DVT prophylaxis: Subcutaneous heparin GI Prophylaxis: Pepcid Prognosis is guarded
[2022-07-14 11:28] LABS: Basophils # (A) 0.05 X 10*3/uL (0.00-0.10); Basophils % (A) 0.6 %; Eosinophils # (A) 0.02 X 10*3/uL (0.04-0.35); Eosinophils % (A) 0.2 %; HCT 44.7 % (39.6-50.0); HGB 14.5 g/dL (13.0-17.0); Immature Grans, Automated 0.3 %; Lymphocytes % (A) 12.5 %; MCH 28.7 pg (27.0-32.0); MCHC 32.4 g/dL (32.0-37.0); MCV 88.3 fL (80.0-97.0); Monocytes # (A) 1.24 X 10*3/uL (0.20-1.00); NRBC Per 100 WBC 0 /100 WBCS (0.0-0.0); Neutrophils # (A) 6.39 X 10*3/uL (1.80-7.70); Neutrophils % (A) 72.4 %; Platelet Count 275 X 10*3/uL (140-440); RBC 5.06 X 10*6/uL (4.40-5.60); RDW 14.4 % (11.5-14.5); WBC 8.83 X 10*3/uL (4.50-10.00)
[2022-07-14 11:49] LABS: African American GFR (CKD) 100.7 (60.0-200.0); Anion Gap 8.3 mmol/L (10.00-18.00); BUN/Creat Ratio 26.15 Ratio (12.00-20.00); Blood Urea Nitrogen 22.7 mg/dL (9.0-27.0); Calcium 7.8 mg/dL (8.7-10.3); Carbon Dioxide 24.6 mmol/L (20.0-27.5); Non-African American GFR(CKD) 86.9 (60.0-200.0); Potassium 4.7 mmol/L (3.5-5.5)
--- NOTE | 2022-07-14 12:21 | P.GSCN ---
History of Present Illness Consult date: 07/14/22 Reason for Consult: BPH History of present illness: This is a 72-year-old male with history of BPH. Underwent robotic simple prostatectomy on July 11. He presented to the hospital yesterday with abdominal pain with nausea and vomiting. Underwent a CT abdomen and pelvis that showed evidence of incisional hernia with loops of bowel protruding through it. Patient was taken to the OR yesterday by Dr. Wilkes for repair of incisional hernia. He's doing well since surgery is tolerating clear liquid diet. Indicated significant improvement in his abdominal pain, and did have a bowel movement this morning. Langley catheter is in place draining blood-tinged urine. Denies any suprapubic or flank pain. Review of Systems - Constitutional Denies chills, Denies fever - EENT Ears, nose, mouth and throat: Denies dysphagia - Cardiovascular Denies chest pain, Denies shortness of breath - Respiratory Denies cough, Denies 7 - Gastrointestinal Reports as per HPI - Genitourinary Denies dysuria, Denies hematuria - Neurological Denies headaches, Denies syncope Past Medical History Past Medical History: Eye Disorder, GERD/Reflux, Hearing Disorder / Deafness, Prostate Disorder Additional Past Medical History / Comment(s): Glaucoma bilat eyes. Hx nephritis as child. Enlarged prostate. History of Any Multi-Drug Resistant Organisms: None Reported Past Surgical History: Joint Replacement, Orthopedic Surgery, Tonsillectomy Additional Past Surgical History / Comment(s): Total hips bilat. ORIF Rt ankle. Vasectomy, epididymectomy. prostate surgery, eye surgery Past Anesthesia/Blood Transfusion Reactions: No Reported Reaction Past Psychological History: No Psychological Hx Reported Smoking Status: Former smoker Past Alcohol Use History: None Reported Additional Past Alcohol Use History / Comment(s): . Past Drug Use History: None Reported - Past Family History Mother Sister(s) Family Medical History: Cancer Additional Family Medical History / Comment(s): mother - breast cancer; sister - breast cancer Father Family Medical History: Cancer Additional Family Medical History / Comment(s): colon cancer Medications and Allergies Home Medications Medication Instructions Recorded Confirmed Type Dorzolamide-Timol 2.23%/0.68% 1 drop BOTH EYES BID 11/05/21 07/13/22 History [Cosopt] Multivitamins, Thera [Multivitamin 1 tab PO DAILY 11/05/21 07/13/22 History (formulary)] HYDROcodone/APAP 5-325MG [[place] 1 tab PO Q6HR PRN #6 tab 07/12/22 07/13/22 Rx 5-325] Ketorolac [Toradol] 10 mg PO Q6HR PRN #15 tab 07/12/22 07/13/22 Rx Sennosides-Docusate Sodium 1 tab PO DAILY #7 tablet 07/12/22 07/13/22 Rx [Senokot-S] Ciprofloxacin HCl [Cipro] 500 mg PO DIRECTED 07/13/22 07/13/22 History Allergies Allergy/AdvReac Type Severity Reaction Status Date / Time bee venom protein (honey bee) Allergy Swelling Verified 07/09/22 16:27 epoxy resin Allergy Swelling Verified 07/09/22 16:27 Surgical - Exam Vital Signs Temp Pulse Resp BP Pulse Ox 98.9 F 94 18 119/97 95 07/13/22 15:15 07/13/22 15:15 07/13/22 15:15 07/13/22 15:15 07/13/22 15:15 - General no distress, no pain - Eyes normal ocular movement, no pale - ENT normal nares, normal mucosa - Respiratory normal expansion, normal respiratory effort - Abdomen Abdomen: soft, non tender, distended - Psychiatric oriented to time, oriented to person, oriented to place Results - Labs 07/14/22 07:49 07/14/22 07:49 Abnormal Lab Results - Last 24 Hours (Table) 07/13/22 07/13/22 07/14/22 Range/Units 15:58 15:58 07:49 WBC 16.6 H (3.8-10.6) k/uL Neutrophils # (Manual) 13.70 H (1.3-7.7) k/uL Monocytes # 1.24 H (0.20-1.00) X 10*3/uL Monocytes # (Manual) 1.33 H (0-1.0) k/uL Eosinophils # 0.02 L (0.04-0.35) X 10*3/uL Anion Gap (10.00-18.00) mmol/L BUN/Creatinine Ratio (12.00-20.00) Ratio Glucose 137 H (74-99) mg/dL Calcium (8.7-10.3) mg/dL 07/14/22 Range/Units 07:49 WBC (3.8-10.6) k/uL Neutrophils # (Manual) (1.3-7.7) k/uL Monocytes # (0.20-1.00) X 10*3/uL Monocytes # (Manual) (0-1.0) k/uL Eosinophils # (0.04-0.35) X 10*3/uL Anion Gap 8.30 L (10.00-18.00) mmol/L BUN/Creatinine Ratio 26.15 H (12.00-20.00) Ratio Glucose 130 H (74-99) mg/dL Calcium 7.8 L (8.7-10.3) mg/dL Diabetes panel 07/13/22 07/14/22 Range/Units 15:58 07:49 Sodium 138 139 (137-145) mmol/L Potassium 4.9 4.7 (3.5-5.1) mmol/L Chloride 101 106 (98-107) mmol/L Carbon Dioxide 23 24.6 (22-30) mmol/L BUN 20 22.7 (9-20) mg/dL Creatinine 0.71 0.9 (0.66-1.25) mg/dL Glucose 137 H 130 H (74-99) mg/dL Calcium 8.5 7.8 L (8.4-10.2) mg/dL AST 25 (17-59) U/L ALT 22 (4-49) U/L Alkaline Phosphatase 101 (38-126) U/L Total Protein 7.4 (6.3-8.2) g/dL Albumin 4.3 (3.5-5.0) g/dL Calcium panel 07/13/22 07/14/22 Range/Units 15:58 07:49 Calcium 8.5 7.8 L (8.4-10.2) mg/dL Albumin 4.3 (3.5-5.0) g/dL Pituitary panel 07/13/22 07/14/22 Range/Units 15:58 07:49 Sodium 138 139 (137-145) mmol/L Potassium 4.9 4.7 (3.5-5.1) mmol/L Chloride 101 106 (98-107) mmol/L Carbon Dioxide 23 24.6 (22-30) mmol/L BUN 20 22.7 (9-20) mg/dL Creatinine 0.71 0.9 (0.66-1.25) mg/dL Glucose 137 H 130 H (74-99) mg/dL Calcium 8.5 7.8 L (8.4-10.2) mg/dL Adrenal panel 07/13/22 07/14/22 Range/Units 15:58 07:49 Sodium 138 139 (137-145) mmol/L Potassium 4.9 4.7 (3.5-5.1) mmol/L Chloride 101 106 (98-107) mmol/L Carbon Dioxide 23 24.6 (22-30) mmol/L BUN 20 22.7 (9-20) mg/dL Creatinine 0.71 0.9 (0.66-1.25) mg/dL Glucose 137 H 130 H (74-99) mg/dL Calcium 8.5 7.8 L (8.4-10.2) mg/dL Total Bilirubin 1.1 (0.2-1.3) mg/dL AST 25 (17-59) U/L ALT 22 (4-49) U/L Alkaline Phosphatase 101 (38-126) U/L Total Protein 7.4 (6.3-8.2) g/dL Albumin 4.3 (3.5-5.0) g/dL Assessment and Plan Assessment: 72-year-old male status post robotic some prostatectomy July 12. Presented back to the hospital yesterday with incarcerated bowel through incisional hernia. He was taken to the OR for repair of incisional hernia by Dr Wilkes -Keep Langley catheter in place, he will follow-up as an outpatient on for langley catheter removal
--- NOTE | 2022-07-14 14:20 | P.PN ---
Subjective Progress Note Date: 07/14/22 The patient is seen on rounds. He had a ventral incisional hernia repair yesterday due to incarcerated small bowel with a small bowel obstruction. He's feeling much better today. Has had a bowel movement. His taking clear liquids but he does get full quickly. The heartburn he has been having preoperatively is improved with medication. Objective - Vital Signs Vital signs: Vital Signs Temp 97.6 F 07/14/22 11:46 Pulse 84 07/14/22 11:46 Resp 17 07/14/22 11:46 BP 146/83 07/14/22 11:46 Pulse Ox 91 L 07/14/22 11:46 FiO2 Intake & Output 07/13/22 07/14/22 07/14/22 18:59 06:59 18:59 Intake Total 1000 Output Total 860 Balance 140 Weight 120.202 kg 120.202 kg Intake: IV 1000 Output: Urine 840 Uretheral (Cherry) 240 Estimated Blood Loss 20 Other: Voiding Method Indwelling Catheter Indwelling Catheter Indwelling Catheter # Bowel Movements 1 - Constitutional General appearance: Present: cooperative, no acute distress - Gastrointestinal General gastrointestinal: Present: distended (Softly distended with slight tympany to percussion), normal bowel sounds Localized gastrointestinal: surgical scar: epigastric periumbilical (Dressing is intact, clean and dry) - Labs CBC & Chem 7: 07/14/22 07:49 07/14/22 07:49 Labs: Abnormal Lab Results - Last 24 Hours (Table) 07/13/22 07/13/22 07/14/22 Range/Units 15:58 15:58 07:49 WBC 16.6 H (3.8-10.6) k/uL Neutrophils # (Manual) 13.70 H (1.3-7.7) k/uL Monocytes # 1.24 H (0.20-1.00) X 10*3/uL Monocytes # (Manual) 1.33 H (0-1.0) k/uL Eosinophils # 0.02 L (0.04-0.35) X 10*3/uL Anion Gap (10.00-18.00) mmol/L BUN/Creatinine Ratio (12.00-20.00) Ratio Glucose 137 H (74-99) mg/dL Calcium (8.7-10.3) mg/dL 07/14/22 Range/Units 07:49 WBC (3.8-10.6) k/uL Neutrophils # (Manual) (1.3-7.7) k/uL Monocytes # (0.20-1.00) X 10*3/uL Monocytes # (Manual) (0-1.0) k/uL Eosinophils # (0.04-0.35) X 10*3/uL Anion Gap 8.30 L (10.00-18.00) mmol/L BUN/Creatinine Ratio 26.15 H (12.00-20.00) Ratio Glucose 130 H (74-99) mg/dL Calcium 7.8 L (8.7-10.3) mg/dL Assessment and Plan (1) Incarcerated ventral hernia Current Visit: Yes Status: Acute Code(s): K43.6 - OTHER AND UNSP VENTRAL HERNIA WITH OBSTRUCTION, W/O GANGRENE SNOMED Code(s): 442434621 (2) Small bowel obstruction Current Visit: Yes Status: Acute Code(s): K56.609 - UNSP INTESTNL OBST, UNSP TO PARTIAL VERSUS COMPLETE OBST SNOMED Code(s): 433918329 Plan: Patient is doing well. We'll slowly increase his diet. Hopefully ready for discharge in the next 1-2 days.
[2022-07-15] MEDS: KETOROLAC 15 MG/ML 1 ML VIAL IVP SCH ×3 (06:29→18:30)
[2022-07-15] MEDS: 0.9% NACL WITH KCL 20 MEQ/L 1,000 ML IV SCH (06:30)
[2022-07-15] MEDS: HEPARIN SODIUM,PORCINE/PF 5,000 UNIT/0.5 ML SYRINGE SQ SCH ×3 (08:17→23:51)
[2022-07-15] MEDS: PANTOPRAZOLE 40 MG/10 ML VIAL IV SCH (08:17)
[2022-07-15] MEDS: PIPERACILLIN-TAZOBACTAM 3.375 GM in SODIUM CHLORIDE 0.9% 100 ML IVPB SCH ×3 (08:17→23:51)
[2022-07-15 10:37] LABS: African American GFR (CKD) >90 (>60 ml/min/1.73 sqM); Anion Gap 5 mmol/L; Blood Urea Nitrogen 14 mg/dL (9-20); Calcium 7.2 mg/dL (8.4-10.2); Carbon Dioxide 27 mmol/L (22-30); Chloride 106 mmol/L (98-107); Glucose 102 mg/dL (74-99); Non-African American GFR(CKD) >90 (>60 ml/min/1.73 sqM); Potassium 4.3 mmol/L (3.5-5.1); Sodium 138 mmol/L (137-145)
[2022-07-15] MEDS: SODIUM CHLORIDE 0.9% 1,000 ML IV SCH (11:46)
--- NOTE | 2022-07-15 16:08 | P.PN ---
Subjective Progress Note Date: 07/15/22 Patient is seen on rounds. He's feeling too good this afternoon. He's bloated and feels weak. He was able to eat some of his lunch. A bowel movement yesterday and none today. Denies fevers or chills. Denies nausea or vomiting Objective - Vital Signs Vital signs: Vital Signs Temp 98 F 07/15/22 12:01 Pulse 56 L 07/15/22 12:01 Resp 16 07/15/22 12:01 BP 131/89 07/15/22 12:01 Pulse Ox 97 07/15/22 12:01 FiO2 Intake & Output 07/14/22 07/15/22 07/15/22 18:59 06:59 18:59 Output Total 550 1000 Balance -550 -1000 Output: Urine 550 1000 Other: Voiding Method Indwelling Catheter Indwelling Catheter Indwelling Catheter # Bowel Movements 1 - Constitutional General appearance: Present: cooperative, no acute distress - Gastrointestinal General gastrointestinal: Present: decreased bowel sounds, distended (With tympany to percussion) Localized gastrointestinal: surgical scar: midline (Incision is intact, clean with some serous drainage on the gauze) - Labs CBC & Chem 7: 07/14/22 07:49 07/15/22 10:00 Labs: Abnormal Lab Results - Last 24 Hours (Table) 07/15/22 Range/Units 10:00 Glucose 102 H (74-99) mg/dL Calcium 7.2 L (8.4-10.2) mg/dL Assessment and Plan (1) Incarcerated ventral hernia Current Visit: Yes Status: Acute Code(s): K43.6 - OTHER AND UNSP VENTRAL HERNIA WITH OBSTRUCTION, W/O GANGRENE SNOMED Code(s): 847608375 (2) Small bowel obstruction Current Visit: Yes Status: Acute Code(s): K56.609 - UNSP INTESTNL OBST, UNSP TO PARTIAL VERSUS COMPLETE OBST SNOMED Code(s): 183338338 (3) Ileus Current Visit: Yes Status: Acute Code(s): K56.7 - ILEUS, UNSPECIFIED SNOMED Code(s): 831377681 Plan: Patient seems to have an ileus. We'll try to have him increase his activity including ambulation. Given something to stimulate his bowels. He is not drinking wall so we'll continue the IV fluids at this point. Questions were encouraged and answered.
[2022-07-15] MEDS ORDERED: bisacodyL 10 MG SUPP RECTAL STA (18:49)
--- NOTE | 2022-07-16 00:23 | P.PN ---
Subjective Progress Note Date: 07/15/22 This is a pleasant 72 years old male with multiple medical problems presents with nausea vomiting recurrent with constipation for the last 3 days Patient status post robotic prostatectomy for his BPH. Patient is postop day #2 Patient's presents with signs symptoms of small bowel obstruction secondary to incarcerated umbilical or ventral hernia. Patient evaluated by surgery team and was taken to operation room. Today postop day #1. Patient doing well, he is fully awake and oriented, no chest pain or dyspnea, abdomen soft, no significant tenderness. Some tenderness expected. Vitas looks stable, patient is afebrile. Patient has leukocytosis with 16.[address] of the abdomen and pelvis: Incarcerated periumbilical hernia containing small bowel with high-grade mechanical small bowel obstruction. He is status post release of bowel loops and repair of the incisional ventral hernia. Today is postoperative day #1. 07/15/2022 Patient is postoperative day #2 herna repair. He had a BM. He reports improved abdominal pain with pain medication. Urinating into langley bag. Needs to follow up with urology outpatient. White count improved 8.83. Labs mostly unremarkable. He is tolerating diet, continues with gentle hydration which is adjusted to normal saline today. Eye drops are resumed. Review of Systems Constitutional: Denied any fatigue denied any fever. Cardio vascular: denied any chest pain, palpitations Gastrointestinal: denied any nausea, vomiting, diarrhea Pulmonary: Denied any shortness of breath cough Neurologic denied any new focal deficits All inpatient medications were reviewed and appropriate changes in these medications as dictated in the interval history and assessment and plan. PHYSICAL EXAMINATION: GENERAL: The patient is alert and oriented x3, not in any acute distress. Well developed, well nourished. HEENT: Pupils are round and equally reacting to light. EOMI. No scleral icterus. No conjunctival pallor. Normocephalic, atraumatic. No pharyngeal erythema. No thyromegaly. CARDIOVASCULAR: S1 and S2 present. No murmurs, rubs, or gallops. PULMONARY: Chest is clear to auscultation, no wheezing or crackles. ABDOMEN: Soft, nontender, nondistended, normoactive bowel sounds. No palpable organomegaly. Post surgical. Indwelling catheter in place. MUSCULOSKELETAL: No joint swelling or deformity. EXTREMITIES: No cyanosis, clubbing, or pedal edema. NEUROLOGICAL: Gross neurological examination did not reveal any focal deficits. Assessment and Plan Assessment Small bowel obstruction secondary to incarcerated hernia , status post release of small bowel obstruction with repair of ventral incisional hernia Recent history of robotic prostatectomy for BPH. Today postop day #4 History of GERD Hearing difficulty Glaucoma bilateral eyes Former Smoker GI Prophylaxis DVT Prophylaxis Full Code Plan Adjusted IV fluids Resume home eye gtts Labs reviewed The impression and plan of care has been dictated by Rossi Hernandez, Nurse Practitioner as directed. Dr. Josey MD I have performed a history and physical examination and medical decision making of this patient, discussed the same with the dictator, and agree with the dictators assessment and plan as written, documented as a scribe. Based on total visit time, I have performed more than 50% of this visit. Objective - Vital Signs Vital signs: Vital Signs Temp 98.2 F 07/15/22 20:00 Pulse 63 07/15/22 20:00 Resp 16 07/15/22 20:00 BP 149/83 07/15/22 20:00 Pulse Ox 95 07/15/22 20:00 FiO2 Intake & Output 07/15/22 07/15/22 07/16/22 06:59 18:59 06:59 Output Total 1000 800 Balance -1000 -800 Output: Urine 1000 800 Other: Voiding Method Indwelling Catheter Indwelling Catheter Indwelling Catheter # Voids 3 # Bowel Movements 1 - Labs CBC & Chem 7: 07/14/22 07:49 07/15/22 10:00 Labs: Abnormal Lab Results - Last 24 Hours (Table) 07/15/22 Range/Units 10:00 Glucose 102 H (74-99) mg/dL Calcium 7.2 L (8.4-10.2) mg/dL Assessment and Plan Time with Patient: Less than 30
[2022-07-16] MEDS: HEPARIN SODIUM,PORCINE/PF 5,000 UNIT/0.5 ML SYRINGE SQ SCH ×3 (08:43→23:13)
[2022-07-16] MEDS: SODIUM CHLORIDE 0.9% 1,000 ML IV SCH (08:44)
[2022-07-16] MEDS: PIPERACILLIN-TAZOBACTAM 3.375 GM in SODIUM CHLORIDE 0.9% 100 ML IVPB SCH ×3 (08:44→23:13)
[2022-07-16] MEDS: PANTOPRAZOLE 40 MG/10 ML VIAL IV SCH (08:44)
[2022-07-16] MEDS ORDERED: NA PHOS,M-B/NA PHOS,DI-BA 133 ML ENEMA RECTAL ONE (09:09)
--- NOTE | 2022-07-16 09:18 | P.PN ---
Subjective Progress Note Date: 07/16/22 The patient was seen on rounds. He was given Dulcolax suppository yesterday with minimal results. When dinner came he did not really eat anything. When he got up to the bathroom he ended up having vomiting last night. No vomiting this morning. He has passed a small amount of flatus. Objective - Vital Signs Vital signs: Vital Signs Temp 98.3 F 07/16/22 05:00 Pulse 60 07/16/22 05:00 Resp 16 07/16/22 05:00 BP 142/83 07/16/22 05:00 Pulse Ox 93 L 07/16/22 05:00 FiO2 Intake & Output 07/15/22 07/16/22 07/16/22 18:59 06:59 18:59 Intake Total 900 Output Total 1550 Balance -650 Intake: Intake, IV Titration 600 Amount Piperacillin-Tazobactam 3 200 .375 gm In Sodium Chloride 0.9% 100 ml @ 25 mls/hr IVPB Q8HR [facility] Rx# :[id number] Sodium Chloride 0.9% 1, 400 000 ml @ 50 mls/hr IV . Q20H [facility] Rx#:[id number] Oral 300 Output: Urine 1250 Emesis 300 Other: Voiding Method Indwelling Catheter Indwelling Catheter Indwelling Catheter # Voids 3 # Bowel Movements 1 - Constitutional General appearance: Present: cooperative, no acute distress - Gastrointestinal General gastrointestinal: Present: decreased bowel sounds (Softly distended, hypoactive bs), distended Localized gastrointestinal: surgical scar: midline (incision clean and dry) - Labs CBC & Chem 7: 07/14/22 07:49 07/15/22 10:00 Labs: Abnormal Lab Results - Last 24 Hours (Table) 07/15/22 Range/Units 10:00 Glucose 102 H (74-99) mg/dL Calcium 7.2 L (8.4-10.2) mg/dL Assessment and Plan (1) Incarcerated ventral hernia Current Visit: Yes Status: Acute Code(s): K43.6 - OTHER AND UNSP VENTRAL HERNIA WITH OBSTRUCTION, W/O GANGRENE SNOMED Code(s): 172037685 (2) Small bowel obstruction Current Visit: Yes Status: Acute Code(s): K56.609 - UNSP INTESTNL OBST, UNSP TO PARTIAL VERSUS COMPLETE OBST SNOMED Code(s): 171050235 (3) Ileus Current Visit: Yes Status: Acute Code(s): K56.7 - ILEUS, UNSPECIFIED SNOMED Code(s): 684741933 Plan: Will order labs and abdominal series. Keep the patient on some sips of clear liquids for the time being. Encouraged ambulation. He will be given a Fleet enema. Further recommendations to follow.
[2022-07-16 09:36] LABS: HCT 40.1 % (39.0-53.0); MCH 29.2 pg (25.0-35.0); MCHC 33.2 g/dL (31.0-37.0); MCV 87.9 fL (80.0-100.0); Mean Platelet Volume 7.5; Platelet Count 230 k/uL (150-450); RBC 4.56 m/uL (4.30-5.90); RDW 13.4 % (11.5-15.5); WBC 12.3 k/uL (3.8-10.6)
[2022-07-16 09:43] LABS: African American GFR (CKD) >90 (>60 ml/min/1.73 sqM); Anion Gap 7 mmol/L; Blood Urea Nitrogen 12 mg/dL (9-20); Calcium 7.6 mg/dL (8.4-10.2); Carbon Dioxide 26 mmol/L (22-30); Chloride 104 mmol/L (98-107); Glucose 105 mg/dL (74-99); Non-African American GFR(CKD) >90 (>60 ml/min/1.73 sqM); Potassium 3.8 mmol/L (3.5-5.1); Sodium 137 mmol/L (137-145)
[2022-07-16 09:47] LABS: HGB 13.3 gm/dL (13.0-17.5)
[2022-07-16] MEDS: DORZOLAMIDE-TIMOLOL 2.23%/0.68 10ML BTL BOTH EYES SCH ×2 (09:50→20:01)
--- NOTE | 2022-07-16 10:59 | XR ---
EXAMINATION TYPE: XR abdomen 2V DATE OF EXAM: 07/16/2022 COMPARISON: Abdominal radiograph 07/13/2022, CT abdomen pelvis 07/13/2022. HISTORY: Abdominal distention TECHNIQUE: Upright view of the abdomen was obtained with 4 radiographs. FINDINGS: No convincing pneumoperitoneum. Postsurgical changes with skin nathan along the midline abdomen. Dilated small bowel prominently in the left abdomen measuring up to 5.1 cm with gas identified in the colon with few air-fluid levels identified. The lung bases are clear. Postsurgical changes from bilateral total hip arthroplasty. No acute osseous and amounted. Degenerati ve changes of the visualized spine. IMPRESSION: Dilated small bowel with air-fluid levels. Gas appears to be within the colon. Findings suggest ileus in the setting of recent surgery.
[2022-07-17] MEDS: SODIUM CHLORIDE 0.9% 1,000 ML IV SCH (03:48)
[2022-07-17] MEDS: PIPERACILLIN-TAZOBACTAM 3.375 GM in SODIUM CHLORIDE 0.9% 100 ML IVPB SCH (08:31)
[2022-07-17] MEDS: HEPARIN SODIUM,PORCINE/PF 5,000 UNIT/0.5 ML SYRINGE SQ SCH (08:32)
[2022-07-17] MEDS: PANTOPRAZOLE 40 MG/10 ML VIAL IV SCH (08:32)
--- NOTE | 2022-07-17 08:45 | P.PN ---
Subjective Progress Note Date: 07/17/22 The patient seen on rounds. He is feeling much better today. He had several bowel movements. Tolerating clear liquids. He is anxious to go home. Objective - Vital Signs Vital signs: Vital Signs Temp 97.6 F 07/17/22 05:00 Pulse 68 07/17/22 05:00 Resp 16 07/17/22 05:00 BP 114/70 07/17/22 05:00 Pulse Ox 94 L 07/17/22 05:00 FiO2 Intake & Output 07/16/22 07/17/22 07/17/22 18:59 06:59 18:59 Intake Total 860 Output Total 950 1025 Balance -950 -165 Intake: Intake, IV Titration 500 Amount Piperacillin-Tazobactam 3 100 .375 gm In Sodium Chloride 0.9% 100 ml @ 25 mls/hr IVPB Q8HR [facility] Rx# :[id number] Sodium Chloride 0.9% 1, 400 000 ml @ 50 mls/hr IV . Q20H [facility] Rx#:[id number] Oral 360 Output: Urine 950 1025 Other: Voiding Method Indwelling Catheter Indwelling Catheter # Bowel Movements 1 1 - Constitutional General appearance: Present: cooperative, no acute distress - Gastrointestinal General gastrointestinal: Present: distended (Softly distended, improved from yesterday), normal bowel sounds - Labs CBC & Chem 7: 07/16/22 09:17 07/16/22 09:17 Labs: Abnormal Lab Results - Last 24 Hours (Table) 07/16/22 07/16/22 Range/Units 09:17 09:17 WBC 12.3 H (3.8-10.6) k/uL Glucose 105 H (74-99) mg/dL Calcium 7.6 L (8.4-10.2) mg/dL Assessment and Plan (1) Incarcerated ventral hernia Current Visit: Yes Status: Acute Code(s): K43.6 - OTHER AND UNSP VENTRAL HERNIA WITH OBSTRUCTION, W/O GANGRENE SNOMED Code(s): 930246434 (2) Small bowel obstruction Current Visit: Yes Status: Acute Code(s): K56.609 - UNSP INTESTNL OBST, UNSP TO PARTIAL VERSUS COMPLETE OBST SNOMED Code(s): 980208232 (3) Ileus Current Visit: Yes Status: Acute Code(s): K56.7 - ILEUS, UNSPECIFIED SNOMED Code(s): 171721303 Plan: Patient is clinically improved. If he is able to tolerate soft diet for lunch we can discharge him home. He has pain medication at home. We discussed postop instructions. He is to call if questions or concerns.
[2022-07-17] MEDS: DORZOLAMIDE-TIMOLOL 2.23%/0.68 10ML BTL BOTH EYES SCH (09:34)
[2022-07-17 11:30] VITALS: BP 117/75; PULSE 63; RESP 17; TEMP 98.5
== END 2022-07-17 14:28 | disposition home health service (06) | DRG 336 ==
LOC: EC 15:12 → 5NMEDONC 17:45
PROVIDERS: ADMIT Surgery; ATTEND Surgery
PROC: 0WQF0ZZ Repair Abdominal Wall, Open Approach (ICD-10-PCS; 2022-07-13)
PROC: 0DN80ZZ Release Small Intestine, Open Approach (ICD-10-PCS; principal; 2022-07-13 18:50)
DX: K91.30 Postprocedural intestinal obstruction, unspecified as to partial versus complete (principal); K43.0 Incisional hernia with obstruction, without gangrene; D72.829 Elevated white blood cell count, unspecified; N40.0 Benign prostatic hyperplasia without lower urinary tract symptoms; H91.90 Unspecified hearing loss, unspecified ear; K21.9 Gastro-esophageal reflux disease without esophagitis; Y83.8 Other surgical procedures as the cause of abnormal reaction of the patient, or of later complication, without mention of misadventure at the time of the procedure; R31.9 Hematuria, unspecified; Z28.311 Partially vaccinated for COVID-19; Z90.79 Acquired absence of other genital organ(s); Z87.891 Personal history of nicotine dependence; Z91.030 Bee allergy status; Z91.048 Other nonmedicinal substance allergy status
CPT/HCPCS: 36415; 74018; 74019; 74177; 80048; 80053; 83605; 85025; 85027; 96361; 96374; 99285

== ENCOUNTER → 2024-07-06 | Outpatient (CLI) | payer MEDICARE, OTHER ==
--- NOTE | 2024-07-06 18:24 | US ---
EXAMINATION TYPE: US Aorta Screening DATE OF EXAM: 07/06/2024 COMPARISON: CT 2021 CLINICAL INDICATION: Male, 74 years old with history of Z13.6 SCREENING AAA; Screening AAA, prior smo ker TECHNIQUE: Multiple sonographic images of the abdominal aorta are obtained with grayscale and color D oppler imaging. with grayscale and color Doppler imaging FINDINGS: EXAM MEASUREMENTS: Abdominal Aorta: Proximal: 3.0 x 2.7 cm. Mid: 2.9 x 3.0 cm Distal: 2.6 x 2.9 cm Bifurcation: Right Iliac: 1.4 x 1.6 cm Left Iliac: 1.3 x 1.4 cm [employer]ANCH [employer]PER[employer]OR NOTES: Proximal segment appears aneurysmal = 3.0 cm. Right iliac measures 1.6 cm in trans verse- aneurysmal. Exam is slightly limited due to gas. IMPRESSION: Proximal abdominal aortic aneurysmal dilation up to 2.0 cm. [facility], , 07/06/2024 6:21 PM
== END | disposition home or self-care (01) ==
LOC: RADUSWWP 08:11
PROVIDERS: ATTEND Family Medicine
CPT/HCPCS: 76706